=== PATIENT | male | born 1975 | race Caucasian/White ===

== ENCOUNTER 2021-04-29 04:36 | Day surgery (SDC) | payer OTHER ==
[2021-04-28 18:20] VITALS: BMI 37.3
[2021-04-29 12:40] LABS: INR 1.38 (0.83-1.09); PROTHROMBIN TIME (PATIENT) 16.8 SEC (9.7-13.0)
[2021-04-29] MEDS ORDERED: PROPOFOL 20 ML ONE (14:40)
[2021-04-29] MEDS ORDERED: MIDAZOLAM HCL 2 MG/2 ML SINGLE DOSE VIAL ONE ×3 (14:40→15:42)
[2021-04-29] MEDS ORDERED: LIDOCAINE HCL 1%, 10 MG/ML (20ML VIAL) ONE (14:40)
[2021-04-29] MEDS ORDERED: HEPARIN NA (PORCINE) 5,000 UNITS/ML 1ML VIAL ONE ×2 (14:41→16:13)
[2021-04-29] MEDS ORDERED: HYDROCORTISONE SOD SUCCINATE 100 MG/2 ML VIAL ONE (15:05)
[2021-04-29] MEDS ORDERED: ceFAZolin SODIUM 1 GM VIAL ONE (15:25)
[2021-04-29] MEDS ORDERED: LIDOCAINE HCL 1%, 10 MG/ML (20ML VIAL) INF ONE (15:40)
[2021-04-29] MEDS ORDERED: ONDANSETRON 4 MG/2 ML VIAL IVPUSH PRN (16:33)
[2021-04-29] MEDS ORDERED: LACTATED RINGERS SOLUTION 1,000 ML IV SCH (16:45)
[2021-04-29 18:23] VITALS: TEMP 97.7
[2021-04-29] MEDS ORDERED: IOHEXOL 300 MG/ML INFUS..BTL IJ ONE (18:37)
[2021-04-29 19:06] VITALS: BP 133/79; PULSE 97
== END 2021-04-29 19:00 | disposition home or self-care (01) ==
LOC: JASU-SURG 04:36
PROVIDERS: ATTEND Surgery Vascular Surgery
PROC: 047L3ZZ Dilation of Left Femoral Artery, Percutaneous Approach (ICD-10-PCS; 2021-04-29)
PROC: 3E05317 Introduction of Other Thrombolytic into Peripheral Artery, Percutaneous Approach (ICD-10-PCS; 2021-04-29)
PROC: 047N3ZZ Dilation of Left Popliteal Artery, Percutaneous Approach (ICD-10-PCS; principal; 2021-04-29 13:00)
DX: T82.856A Stenosis of peripheral vascular stent, initial encounter (principal); I87.332 Chronic venous hypertension (idiopathic) with ulcer and inflammation of left lower extremity; L97.322 Non-pressure chronic ulcer of left ankle with fat layer exposed; E11.51 Type 2 diabetes mellitus with diabetic peripheral angiopathy without gangrene; I70.202 Unspecified atherosclerosis of native arteries of extremities, left leg
CPT/HCPCS: 37225; 37229; C1885; 36415; 76000-TC-FY; 85610; 86850; 86900; 86901; 94760; J1644

== ENCOUNTER 2023-07-14 03:59 | Day surgery (SDC) | payer OTHER ==
[2023-07-11 14:05] VITALS: BMI 43.2
[~2023-07-14 03:59] MED LIST: HEPARIN NA (PORCINE) 5,000 UNITS/ML 1ML VIAL SQ ONE; LIDOCAINE HCL 1%, 10 MG/ML (20ML VIAL) NR ONE
[2023-07-14] MEDS ORDERED: HEPARIN NA (PORCINE) 5,000 UNITS/ML 1ML VIAL ONE (14:10)
[2023-07-14] MEDS ORDERED: ONDANSETRON 4 MG/2 ML VIAL IVPUSH PRN (14:21)
[2023-07-14] MEDS ORDERED: oxyCODONE HCL 5 MG TABLET PO PRN (14:21)
[2023-07-14] MEDS ORDERED: LACTATED RINGERS SOLUTION 1,000 ML IV SCH (14:30)
[2023-07-14] MEDS ORDERED: methylPREDNISolone NA SUCC 125 MG/2 ML VIAL ONE (14:47)
[2023-07-14] MEDS ORDERED: MIDAZOLAM HCL 2 MG/2 ML SINGLE DOSE VIAL ONE ×3 (14:47→15:17)
[2023-07-14] MEDS ORDERED: KETAMINE HCL 500 MG/10 ML VIAL ONE (15:11)
[2023-07-14] MEDS ORDERED: LIDOCAINE HCL 1%, 10 MG/ML (20ML VIAL) NR ONE ×2 (15:15)
[2023-07-14] MEDS ORDERED: HEPARIN NA (PORCINE) 5,000 UNITS/ML 1ML VIAL SQ ONE (15:21)
[2023-07-14] MEDS ORDERED: PROPOFOL 20 ML ONE (15:23)
[2023-07-14 17:26] VITALS: TEMP 97.1
[2023-07-14 17:52] VITALS: PULSE 78
[2023-07-14 18:03] VITALS: BP 104/65; RESP 16
== END 2023-07-14 19:10 | disposition home or self-care (01) ==
LOC: JASU-SURG 03:59
PROVIDERS: ATTEND Surgery Vascular Surgery
PROC: 047L3Z1 Dilation of Left Femoral Artery using Drug-Coated Balloon, Percutaneous Approach (ICD-10-PCS; principal; 2023-07-14 14:00)
DX: E11.621 Type 2 diabetes mellitus with foot ulcer (principal)
CPT/HCPCS: 37225; C2623; 76000-TC-FY; 94760; C1769; J1644

== ENCOUNTER 2024-04-13 08:44 | Inpatient (IN) | payer OTHER ==
[2024-04-13 08:52] VITALS: BMI 43.2
[2024-04-13 09:45] LABS: INR 1.57 (0.83-1.09); PROTHROMBIN TIME (PATIENT) 17.5 SEC (9.7-13.0)
[2024-04-13 10:23] LABS: BASO % 0.7 % (0-2.0); EOS % 1.9 % (0-4.5); HEMATOCRIT 33.9 % (35.4-49); HEMOGLOBIN 11.5 GM/dL (11.7-16.9); LYMPH % 16.3 % (8-40); MCH 30.6 pg (25.7-33.7); MCHC 33.8 g/dl (32.0-35.9); MEAN CELL VOLUME 90.5 fl (80-96); MEAN PLT VOLUME 7.6 fl (7.5-11.1); MONO % 6.1 % (3.8-10.2); PLATELET COUNT 103 10^3/uL (134-434); RBC 3.75 M/mm3 (4.00-5.60); RDW 14.7 % (11.9-15.9); WHITE BLOOD COUNT 8.9 K/mm3 (4.0-10.0)
[2024-04-13 10:36] LABS: ALBUMIN 3.5 g/dl (3.4-5.0); BLOOD UREA NITROGEN 19.6 mg/dL (7-18); CALCIUM 8.9 mg/dL (8.5-10.1); CREATININE 1.8 mg/dL (0.55-1.3); N-TERMINAL BNP 485.8 pg/ml (5-125); POTASSIUM 4.6 mmol/L (3.5-5.1); TOT PROT 7.2 g/dl (6.4-8.2)
[2024-04-13] MEDS ORDERED: FUROSEMIDE 40 MG/4 ML INJECTABLE VIAL ONE (10:54)
[2024-04-13] MEDS: FUROSEMIDE 40 MG/4 ML INJECTABLE VIAL IVPUSH ONE (11:04)
[2024-04-13] MEDS ORDERED: ALBUTEROL SO4 HFA INHALER IH PRN (12:00)
[2024-04-13] MEDS ORDERED: levETIRAcetam 500 MG TABLET (FP) PO ONE (12:34)
[2024-04-13] MEDS ORDERED: APIXABAN 5 MG TABLET ONE (12:34)
[2024-04-13] MEDS: APIXABAN 5 MG TABLET PO SCH (12:38)
[2024-04-13] MEDS: levETIRAcetam 500 MG TABLET (FP) PO SCH (12:38)
[2024-04-13] MEDS ORDERED: HEPARIN NA (PORCINE) 5,000 UNITS/ML 1ML VIAL SQ SCH (14:00)
[2024-04-13] MEDS: FUROSEMIDE 40 MG/4 ML INJECTABLE VIAL IVPUSH SCH (17:49)
[2024-04-13] MEDS: ATORVASTATIN CA 40 MG TABLET (FP) PO SCH (21:45)
[2024-04-13] MEDS: ACETAMINOPHEN 1000 MG/100 ML BAG IVPB ONE (23:24)
[2024-04-14 07:34] LABS: BASO % 0.3 % (0-2.0); EOS % 3.3 % (0-4.5); HEMATOCRIT 33.8 % (35.4-49); HEMOGLOBIN 11.5 GM/dL (11.7-16.9); LYMPH % 21.4 % (8-40); MCH 30.8 pg (25.7-33.7); MCHC 34.2 g/dl (32.0-35.9); MEAN CELL VOLUME 90.1 fl (80-96); MEAN PLT VOLUME 7.7 fl (7.5-11.1); MONO % 6.5 % (3.8-10.2); NEUT % 68.5 % (42.8-82.8); PLATELET COUNT 105 10^3/uL (134-434); RBC 3.75 M/mm3 (4.00-5.60); RDW 14.7 % (11.9-15.9); WHITE BLOOD COUNT 8.2 K/mm3 (4.0-10.0)
[2024-04-14 08:01] LABS: BLOOD UREA NITROGEN 24.7 mg/dL (7-18); CALCIUM 8.6 mg/dL (8.5-10.1); CREATININE 1.9 mg/dL (0.55-1.3); PHOSPHOROUS 4.5 mg/dL (2.5-4.9); POTASSIUM 4.2 mmol/L (3.5-5.1)
[2024-04-14] MEDS: LISINOPRIL 10 MG TABLET PO SCH (09:23)
[2024-04-14 14:21] LABS: PH,URINE 5.5 (5.0-8.0); URINE APPEARANCE CLEAR; URINE BILIRUBIN NEGATIVE (NEGATIVE); URINE COLOR YELLOW; URINE GLUCOSE (UA) NEGATIVE (NEGATIVE); URINE KETONE NEGATIVE (NEGATIVE); URINE LEUK ESTERASE NEGATIVE (NEGATIVE); URINE NITRITE NEGATIVE (NEGATIVE); URINE PROTEIN TRACE (NEGATIVE); URINE UROBILINOGEN 0.2 mg/dL (0.2-1.0)
[2024-04-14] MEDS: MINERAL OIL/PET HY-PHL TOPICAL OINTMENT 454 GM JAR TP SCH (15:13)
[2024-04-14 15:29] LABS: PLATELET ESTIMATE SLT DECREASE
[2024-04-14] MEDS: levETIRAcetam 500 MG TABLET (FP) PO SCH (17:13)
[2024-04-15 06:59] LABS: BASO % 0.4 % (0-2.0); EOS % 2.2 % (0-4.5); HEMATOCRIT 35.8 % (35.4-49); HEMOGLOBIN 12.5 GM/dL (11.7-16.9); LYMPH % 19.3 % (8-40); MCH 31.4 pg (25.7-33.7); MEAN CELL VOLUME 89.6 fl (80-96); MEAN PLT VOLUME 7.5 fl (7.5-11.1); MONO % 5.7 % (3.8-10.2); NEUT % 72.4 % (42.8-82.8); PLATELET COUNT 117 10^3/uL (134-434); RDW 14.4 % (11.9-15.9); WHITE BLOOD COUNT 8.3 K/mm3 (4.0-10.0)
[2024-04-15 07:45] LABS: POTASSIUM 4.2 mmol/L (3.5-5.1)
[2024-04-15 07:53] LABS: ALBUMIN 3.7 g/dl (3.4-5.0)
[2024-04-15 07:54] LABS: CALCIUM 9.1 mg/dL (8.5-10.1)
[2024-04-15 07:56] LABS: TOT PROT 7.7 g/dl (6.4-8.2)
[2024-04-15 07:57] LABS: BILIRUBIN,TOTAL 0.9 mg/dL (0.2-1); BLOOD UREA NITROGEN 29.2 mg/dL (7-18); N-TERMINAL BNP 255.2 pg/ml (5-125)
[2024-04-15] MEDS: TAMSULOSIN HCL 0.4 MG CAP PO SCH (09:49)
[2024-04-16 01:55] VITALS: RESP 18
[2024-04-16 08:15] LABS: BLOOD UREA NITROGEN 34.6 mg/dL (7-18); CREATININE 2.1 mg/dL (0.55-1.3); POTASSIUM 4.2 mmol/L (3.5-5.1)
[2024-04-16 08:51] VITALS: BP 122/81; PULSE 99; TEMP 98.8
[2024-04-16] MEDS: metoPROLOL SUCCINATE 25 MG TAB.SR.24H (FP) PO SCH (11:58)
== END 2024-04-16 14:07 | disposition home or self-care (01) | DRG 194 ==
LOC: JER 08:44 → JERBED 11:39 → J7W 13:57 → J4S 21:19
PROVIDERS: ADMIT Student in an Organized Health Care Education/Training Program; ATTEND Internal Medicine
DX: I13.0 Hypertensive heart and chronic kidney disease with heart failure and stage 1 through stage 4 chronic kidney disease, or unspecified chronic kidney disease (principal); D69.6 Thrombocytopenia, unspecified; I73.9 Peripheral vascular disease, unspecified; E66.01 Morbid (severe) obesity due to excess calories; E78.5 Hyperlipidemia, unspecified; G40.909 Epilepsy, unspecified, not intractable, without status epilepticus; G47.33 Obstructive sleep apnea (adult) (pediatric); J44.9 Chronic obstructive pulmonary disease, unspecified; J45.909 Unspecified asthma, uncomplicated; N18.9 Chronic kidney disease, unspecified; N20.0 Calculus of kidney; I50.31 Acute diastolic (congestive) heart failure; R33.9 Retention of urine, unspecified; I34.2 Nonrheumatic mitral (valve) stenosis
CPT/HCPCS: 0241U-QW; 36415; 71045-TC-FY; 76775-TC; 76856-TC; 80048; 80053; 80061; 81003; 82550; 82570; 82607; 82728; 82746; 83036; 83540; 83550; 83615; 83735; 83880; 84100; 84156; 84300; 84439; 84443; 84484; 85025; 85045; 85610; 93005; 93010; 93306-TC; 93922; 93925-TC; 94761; 99285-25; G0463-25; J0131

== ENCOUNTER 2024-10-09 05:29 | Day surgery (SDC) | payer OTHER ==
[2024-10-04 12:42] VITALS: BMI 43.2
[2024-10-09] MEDS ORDERED: HEPARIN NA (PORCINE) 5,000 UNITS/ML 1ML VIAL ONE (07:17)
[2024-10-09] MEDS ORDERED: LIDOCAINE HCL 1%, 10 MG/ML (20ML VIAL) ONE (07:17)
[2024-10-09] MEDS ORDERED: PROPOFOL 40 ML ONE (07:23)
[2024-10-09] MEDS ORDERED: MIDAZOLAM HCL 2 MG/2 ML SINGLE DOSE VIAL ONE ×2 (07:23→08:24)
[2024-10-09] MEDS ORDERED: DEXMEDETOMIDINE HCL 200 MCG/2 ML IVPB ONE (08:07)
[2024-10-09] MEDS: ceFAZolin 2 GRAM PREMIX BAG IVPB ONE (08:25)
[2024-10-09] MEDS: LIDOCAINE HCL 1%, 10 MG/ML (20ML VIAL) INF ONE ×2 (08:31)
[2024-10-09] MEDS ORDERED: PROTAMINE SULFATE 50 MG/5 ML VIAL ONE (08:59)
[2024-10-09] MEDS ORDERED: DEXAMETHASONE SOD PHOSPHATE 4 MG/1 ML VIAL ONE (09:16)
[2024-10-09] MEDS ORDERED: ceFAZolin SODIUM 1 GM VIAL ONE (09:16)
[2024-10-09] MEDS ORDERED: ONDANSETRON 4 MG/2 ML VIAL ONE (09:16)
[2024-10-09] MEDS ORDERED: ONDANSETRON 4 MG/2 ML VIAL IVPUSH PRN (09:23)
[2024-10-09] MEDS ORDERED: SODIUM CHLORIDE 1,000 ML IV SCH (09:30)
[2024-10-09] MEDS ORDERED: ACETAMINOPHEN INJECTION 100 ML ONE (09:45)
[2024-10-09] MEDS: ACETAMINOPHEN 1000 MG/100 ML BAG IVPB ONE (09:47)
[2024-10-09 10:51] VITALS: BP 145/78; PULSE 77; RESP 20; TEMP 98.3
== END 2024-10-09 12:05 | disposition home or self-care (01) ==
LOC: JASU-SURG 05:29
PROVIDERS: ATTEND Surgery Vascular Surgery
PROC: 047L3ZZ Dilation of Left Femoral Artery, Percutaneous Approach (ICD-10-PCS; principal; 2024-10-09 07:30)
DX: I70.202 Unspecified atherosclerosis of native arteries of extremities, left leg (principal); L97.929 Non-pressure chronic ulcer of unspecified part of left lower leg with unspecified severity
CPT/HCPCS: 37224; C1725; 76000-TC-FY; 94760; J0131; J1644